=== PATIENT | female | born 2000 | race Caucasian/White ===

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

== ENCOUNTER 2021-02-19 17:04 | Emergency (ER) | payer OTHER ==
[~2021-02-19] VITALS: Ht 160 cm; Wt 75.2 kg
[~2021-02-19 17:04] MED LIST changes: +VOLTAREN - GENE75 MG PO
[2021-02-19 20:36] VITALS: BP 117/62
== END 2021-02-19 20:30 | disposition home or self-care (01) ==
LOC: ED 17:04
DX: J02.9 Acute pharyngitis, unspecified (principal); Z20.822 Contact with and (suspected) exposure to COVID-19

== ENCOUNTER 2021-12-19 11:03 | Emergency (ER) | payer OTHER, MEDICAID ==
[~2021-12-19] VITALS: Ht 160 cm; Wt 76.0 kg
[2021-12-19] VITALS (8 sets, daily range): BP systolic 110–127; BP diastolic 63–78
== END 2021-12-19 12:44 | disposition home or self-care (01) | DRG 556 ==
LOC: ED 11:03
DX: M25.572 Pain in left ankle and joints of left foot (principal)

== ENCOUNTER 2021-12-22 04:10 | Emergency (ER) | payer OTHER, MEDICAID ==
[2021-12-22] VITALS (12 sets, daily range): BP systolic 102–130; BP diastolic 58–108
[~2021-12-22] VITALS: Ht 162.6 cm; Wt 77.0 kg
[2021-12-22] MEDS ORDERED: PRENATA7 PO (04:38)
[2021-12-22 05:05] LABS: HEMATOCRIT 40.9 % (37.0-47.0); HEMOGLOBIN 14.1 g/dl (12.0-16.0); IMMATURE GRANULOCYTES 0.8 % (0.0-5.0); MEAN CORPUSCULAR HGB CONC 34.5 g/dL CAL (32.0-36.0); NEUT# 13.78 thou/uL (2.00-7.15); RED BLOOD COUNT 4.4 mill/uL (4.20-5.60); RED CELL DISTRI WIDTH 12.3 % (11.5-15.5)
[2021-12-22 05:23] LABS: ALBUMIN 3.7 g/dL (3.2-5.0); ALKALINE PHOSPHATASE 147 u/l (38-126); AMYLASE 97 u/l (30-110); ANION GAP 12 (6-22 (CALC)); BILIRUBIN, TOTAL 0.3 mg/dL (0.0-1.4); BUN 5 mg/dL (7-17); BUN/CREATININE RATIO 10 (12-20 (CALC)); CARBON DIOXIDE 20 mmol/l (22-30); CHLORIDE 108 mmol/l (95-108); CREATININE 0.6 mg/dL (0.5-1.0); GFR FOR AFR.AMER. > 60 ML/MIN (>=60 (CALC)); GFR OTHER RACES > 60 ML/MIN (>=60 (CALC)); LIPASE 157 u/l (23-300); POTASSIUM 3.5 mmol/l (3.5-5.1); SGOT/AST 16 u/l (14-36); SODIUM 137 mmol/l (137-146); TOTAL PROTEIN 7.1 g/dL (6.3-8.2)
[2021-12-22 05:35] LABS: MYOGLOBIN 20 ng/mL (0 - 62)
== END 2021-12-22 10:00 | disposition short-term general hospital (02) | DRG 833 ==
LOC: ED 04:10
PROVIDERS: Emergency Medicine
DX: O99.613 Diseases of the digestive system complicating pregnancy, third trimester (principal); K81.9 Cholecystitis, unspecified; Z3A.00 Weeks of gestation of pregnancy not specified; Z20.822 Contact with and (suspected) exposure to COVID-19
CPT/HCPCS: S0164

== ENCOUNTER 2022-09-29 21:55 | Emergency (ER) | payer OTHER, MEDICAID ==
[~2022-09-29] VITALS: Ht 162.6 cm; Wt 68.0 kg
[2022-09-29] VITALS (7 sets, daily range): BP systolic 106–120; BP diastolic 64–94
[~2022-09-29 21:55] MED LIST changes: +PRENATA7 PO
[2022-09-29] MEDS ORDERED: BACTRIM DS1 TAB PO (23:09)
[2022-09-29] MEDS ORDERED: PYRIDIUM200 MG PO (23:09)
[2022-09-29 23:26] LABS: URINE BLOOD DIPSTICK LARGE (NEGATIVE); URINE COLOR YELLOW; URINE GLUCOSE - DIPSTICK NEGATIVE (NEGATIVE); URINE KETONE TRACE mg/dL (NEGATIVE); URINE PROTEIN - DIPSTICK 30 mg/dL (NEG-TRACE); URINE UROBILINOGEN - DIPSTICK 0.2 E.U./dL (0.2)
[2022-09-29 23:36] LABS: URINE BILIRUBIN - DIPSTICK NEGATIVE (NEGATIVE); URINE LEUK ESTERASE MODERATE (NEGATIVE); URINE NITRITE - DIPSTICK NEGATIVE (Negative)
[2022-09-29 23:37] LABS: URINE RBC 25-50 RBC/hpf (0-5)
[2022-09-29 23:38] LABS: URINE EPITHELIAL CELLS MODERATE EPI/hpf (0-FEW); URINE WBC >100 WBC/hpf (0-5)
[2022-09-29 23:39] LABS: URINE BACTERIA MODERATE hpf
[2022-09-30] VITALS: BP 117/74
[2022-09-30 00:16] VITALS: BP 128/65
== END 2022-09-30 00:17 | disposition home or self-care (01) | DRG 690 ==
LOC: ED 21:55
PROVIDERS: Emergency Medicine
DX: N39.0 Urinary tract infection, site not specified (principal)

== ENCOUNTER 2024-05-29 21:02 | Emergency (ER) | payer MEDICAID ==
[~2024-05-29] VITALS: Ht 162.6 cm; Wt 75.0 kg
[~2024-05-29 21:02] MED LIST changes: +BACTRIM DS1 TAB PO; +PYRIDIUM200 MG PO; +VENTOLIN HFA108 MCG IN
[2024-05-29] MEDS ORDERED: PHENAZOPYRIDINE HCL 100 MG/TAB PO ONE (21:20)
[2024-05-29 21:25] LABS: URINE BILIRUBIN - DIPSTICK Negative (NEGATIVE); URINE BLOOD DIPSTICK Negative (NEGATIVE); URINE CLARITY Clear; URINE GLUCOSE - DIPSTICK Negative (NEGATIVE); URINE KETONE Negative (NEGATIVE); URINE LEUK ESTERASE Negative (Negative); URINE NITRITE - DIPSTICK Negative (Negative); URINE PROTEIN - DIPSTICK Negative (NEG-TRACE); URINE SPECIFIC GRAVITY 1.025
[2024-05-29 21:27] LABS: URINE COLOR Yellow
[2024-05-29 21:41] VITALS: BP 116/74
[2024-05-29 21:45] VITALS: BP 118/79
[2024-05-29 22:01] VITALS: BP 120/89
[2024-05-29] MEDS ORDERED: DOXYCYCLINE HYCLATE 100 MG/CAP PO ONE (23:20)
[2024-05-29] MEDS ORDERED: VIBRAMYCIN100 M2 PO (23:23)
[2024-05-29] MEDS ORDERED: LIDOCAINE HCL 1% (10MG/ML) 100 MG/10 ML MDV ONE (23:32)
[2024-05-30] VITALS: BP 120/89
== END 2024-05-30 | disposition home or self-care (01) ==
LOC: ED 21:02
PROVIDERS: Emergency Medicine
DX: R30.0 Dysuria (principal); R10.2 Pelvic and perineal pain; Z87.440 Personal history of urinary (tract) infections